=== PATIENT | female | born 1930 | race Caucasian/White ===

== ENCOUNTER 2016-10-29 07:48 | Inpatient (IN) | payer MEDICARE, OTHER ==
[~2016-10-29] VITALS: Ht 162.6 cm; Wt 73.7 kg
[2016-10-29] MEDS ORDERED: ALBUTEROL 0.083% NEB SOLUTION 2.5 MG/3 ML VIAL INH ONE (08:05)
--- NOTE | 2016-10-29 08:08 | NUR ---
PT UP TO ATTEMPT TO URINATE SHE STATES "I GOTTA GO PEE REAL BAD". PT ONLY GAVE A VERY MINUTE AMOUNT. STATES WHEN SHE COUGHS SHE FEELS THE URGE TO URINATE. CL
[2016-10-29 08:26] LABS: BASOPHILS % (AUTO) 0 % (0-2); EOSINOPHILS # (AUTO) 0.2 10^3uL; EOSINOPHILS % (AUTO) 1 % (0-4); LYMPHOCYTES # (AUTO) 1.6 X10^3; MEAN CORPUSCULAR HEMOGLOBIN 29.6 PG (26.0-34.0); MEAN CORPUSCULAR HGB CONC 32.8 g/dL (31.0-37.0); MEAN CORPUSCULAR VOLUME 90 FL (80-100); MONOCYTES # (AUTO) 1.3 X10^3; MONOCYTES % (AUTO) 10 % (3-11); NEUTROPHILS # (AUTO) 10.1 X10^3; NEUTROPHILS % (AUTO) 77 % (51-67); PLATELET COUNT 283 10^3uL (150-450); WHITE BLOOD COUNT 13.15 10^3uL (4.0-11.0)
[2016-10-29 08:42] LABS: ALBUMIN 3.9 g/dL (3.4-5.0); ANION GAP 13.2 MEQ/L (3-15); CALCULATED IONIZED CALCIUM 3.8 mg/dL (3.8-4.6)
[2016-10-29 08:43] LABS: INFLUENZA VIRUS TYPE A ANTIBOD Negative (NEGATIVE); INFLUENZA VIRUS TYPE B ANTIBOD Negative (NEGATIVE)
--- NOTE | 2016-10-29 08:54 | NUR ---
DR VAZQUEZ TEXTS DR BEACH RE PT. CL
--- NOTE | 2016-10-29 09:00 | NUR ---
PT UNABLE TO URINATE YET. CL
[2016-10-29] MEDS ORDERED: NS IV 500 ML 500 ML IV SCH (09:30)
[2016-10-29] MEDS ORDERED: SODIUM CHLORIDE FLUSH 3 ML SYR IV ONE (09:30)
[2016-10-29] MEDS ORDERED: methylPREDNISolone 125 MG (Solu-MEDROL) VIAL IV ONE (09:30)
--- NOTE | 2016-10-29 10:13 | NUR ---
PT CONT UNABLE TO VOID AT THIS TIME & WOULD LIKE TO STAY IN HER [facility] FROM HOME. CL
--- NOTE | 2016-10-29 10:25 | NUR ---
TEXT TO M/S PHONE 2 FOR REPORT. CL
--- NOTE | 2016-10-29 10:45 | NUR ---
Pt admitted to Rm 309 via cart accompanied by Ann, MARLENE and family. Skin warm, dry, intact. Resprs nonlabored, even on 2L NC. 22g to R wrist intact. See admission database for assessment info.
[2016-10-29 11:04] VITALS: BP 153/78
[2016-10-29] MEDS ORDERED: MAG HYDROX/AL HYDROX/SIMETH 200-200-20/5 ML (MAG-AL PLUS) 30 ML UDC PO PRN (11:20)
[2016-10-29] MEDS ORDERED: POLYETHYLENE GLYCOL 17 GM (MIRALAX) PACKET PO PRN (11:20)
[2016-10-29] MEDS ORDERED: MAGNESIUM HYDROXIDE 80MG/ML (MILK OF MAGNESIA) 30 ML UDC PO PRN (11:20)
[2016-10-29] MEDS ORDERED: ACETAMINOPHEN 325 MG TAB (TYLENOL) PO PRN (11:20)
[2016-10-29] MEDS ORDERED: ONDANSETRON 4 MG (ZOFRAN) ORAL DISSOLVE TAB PO PRN (11:20)
[2016-10-29] MEDS ORDERED: CALCIUM CARBONATE CHEWABLE 300 MG (TUMS) TABLET PO PRN (11:20)
[2016-10-29] MEDS ORDERED: ALBUTEROL 0.083% NEB SOLUTION 2.5 MG/3 ML VIAL INH PRN (11:20)
[2016-10-29] MEDS ORDERED: PROMETHAZINE HCL INJ 12.5 MG in SODIUM CHLORIDE 25 ML IV PRN (11:20)
[2016-10-29] MEDS ORDERED: DOCUSATE SODIUM 100 MG (COLACE) CAP PO PRN (11:20)
[2016-10-29 11:29] VITALS: BP 153/78
[2016-10-29] MEDS ORDERED: ALBUTEROL/IPRATROPIUM 3MG-0.5MG/3ML (DUONEB) NEB VIAL INH SCH (12:00)
[2016-10-29] MEDS ORDERED: SODIUM CHLORIDE 100 ML ONE (12:07)
[2016-10-29] MEDS ORDERED: NS 100 ML (IVPB) BAG INJ PRN (12:10)
[2016-10-29] MEDS ORDERED: SODIUM CHLORIDE 100 ML INJ PRN (12:10)
[2016-10-29] MEDS: LEVOFLOXACIN 750 MG/150 ML IV 150 ML IV SCH (12:29)
--- NOTE | 2016-10-29 13:16 | NUR ---
MED REC COMPLETED-current med list obtained from Ext Med History application, prescription bottles, and patient interview.
--- NOTE | 2016-10-29 15:03 | NUR ---
MULTIDISCIPLINARY MTG/DR. RODRIGUEZ: Pt. admitted today with a respiratory illness she has had for more than two weeks. Pt. had been on azithromycin. Will treat Pt. for bronchopneumonia and treat with levofloxacin. Pt. reports she hasn't had an appetite the last few weeks and she has lost weight. Pt. daughters prepare meals for Pt. and her . Pt. will receive duonebs TID and oxygen protocol is ordered. Pt. has been on 2L oxygen since arriving on the floor. PT ordered to work with Pt. No discharge needs identified at this time.
[2016-10-29 15:38] LABS: BILIRUBIN,URINE Negative (Negative); CLARITY,URINE Clear; COLOR,URINE Yellow; GLUCOSE, URINE (UA) Negative (Negative); LEUKOCYTE ESTERASE ,URINE Negative (Negative)
[2016-10-29 15:52] VITALS: BP 137/83
[2016-10-29 16:03] LABS: URINE CENTRIFUGED VOLUME 12 mL
[2016-10-29 16:04] LABS: RBC,URINE 0-2 /HPF
--- NOTE | 2016-10-29 17:44 | NUR ---
Pt denies needs this shift. Family here off and on today. SL intact. Pt requests cough drops, [place] notified. Skin WDI, resprs nonlabored, even on RA. Denies needs.
[2016-10-29] MEDS ORDERED: DILTIAZEM 60 MG (CARDIZEM) TAB PO SCH (18:10)
[2016-10-29] MEDS: HALL'S COUGH DROPS MM PRN ×2 (18:42→21:55)
--- NOTE | 2016-10-29 19:40 | NUR ---
Pt. on room air; SATS obtained; 93%.
[2016-10-29] MEDS: DEXTROMETHORPHAN 15 MG/10 ML UDC PO PRN ×2 (19:43→23:39)
--- NOTE | 2016-10-29 19:43 | NUR ---
Robitussin cough syrup 15 mg given for frequent, harsh cough. SCD's applied. Pt. alert & orientated; watching tv. Call light and H2O within reach.
[2016-10-29] MEDS: ASPIRIN 81 MG CHEW (CHILDREN'S ASA) PO SCH (20:16)
[2016-10-29] MEDS: guaiFENesin ER 600 MG (MUCINEX) TAB PO SCH (20:16)
--- NOTE | 2016-10-29 20:19 | NUR ---
Pt. reports 'the red medicine you gave me is sure helping!' Pt. requests SCD's to be removed; 'I doze off and then they jolt me awake'.
[2016-10-29] MEDS: ALBUTEROL/IPRATROPIUM 3MG-0.5MG/3ML (DUONEB) NEB VIAL INH SCH (20:22)
--- NOTE | 2016-10-29 20:25 | NUR ---
Pt found lying in bed on RA, SPO2 95%, HR 90, RR 18 with a harsh cough. BS essentially clearbefore and after Duoneb via SVN/MASK. Estefanía instructed.
[2016-10-29] MEDS: MONTELUKAST 10 MG (SINGULAIR) TAB PO SCH (21:53)
[2016-10-29] MEDS: HYDROcodone/APAP 5 MG/325 MG (NORCO) TAB PO PRN (21:54)
--- NOTE | 2016-10-29 21:55 | NUR ---
[place] 5 (0.5 mg ) PO given for slight aches with coughing/sleep aid. Pt. utilizes cough drops; preparing for sleep. H2O and call light within reach.
--- NOTE | 2016-10-29 23:39 | NUR ---
Robitussin syrup given for cough.
[2016-10-30 00:10] VITALS: BP 130/78
[2016-10-30 00:42] VITALS: BP 127/68
[2016-10-30] MEDS: DEXTROMETHORPHAN 15 MG/10 ML UDC PO PRN ×4 (03:14→20:26)
--- NOTE | 2016-10-30 03:14 | NUR ---
Pt. sleeping in intervals; Robitussin given at this time. Pt. calls for assist PRN; pleasant & cooperative.
--- NOTE | 2016-10-30 06:11 | NUR ---
Pt. slept in short intervals last night; Robitussin helped cough although still present & productive. Pt. denies discomfort currently; cooperative with calling for stand by assist when ambulating to and fro bathroom with walker. Pt.'s SATS this shift were between 90-96% on room air. Pt. is pleasant and cooperative; call light within reach. H2O replenished; warm wash cloth provided for face and hands.
[2016-10-30 06:14] LABS: ALBUMIN 3.5 g/dL (3.4-5.0); ANION GAP 14.3 MEQ/L (3-15); PHOSPHORUS 3.3 mg/dL (2.4-4.9)
[2016-10-30 06:26] LABS: BASOPHILS % (AUTO) 0 % (0-2); EOSINOPHILS % (AUTO) 0 % (0-4); LYMPHOCYTES # (AUTO) 2.3 X10^3; MEAN CORPUSCULAR HGB CONC 33.1 g/dL (31.0-37.0); MEAN CORPUSCULAR VOLUME 91 FL (80-100); MEAN PLATELET VOLUME 10.3 FL (6.0-9.5); MONOCYTES # (AUTO) 1.3 X10^3; MONOCYTES % (AUTO) 10 % (3-11); NEUTROPHILS # (AUTO) 9.5 X10^3; NEUTROPHILS % (AUTO) 72 % (51-67); PLATELET COUNT 267 10^3uL (150-450); WHITE BLOOD COUNT 13.26 10^3uL (4.0-11.0)
[2016-10-30 07:25] VITALS: BP 140/80
[2016-10-30] MEDS: guaiFENesin ER 600 MG (MUCINEX) TAB PO SCH ×2 (08:11→20:26)
[2016-10-30] MEDS: OMEGA-3 ACID ETHYL ESTERS 1 GM (LOVAZA) CAPSULE PO SCH (08:11)
[2016-10-30] MEDS: PRAVASTATIN 20 MG (PRAVACHOL) TABLET PO SCH (08:11)
[2016-10-30] MEDS: ACIDOPHILUS/LACTOBACILLUS SPOROGENES 1 TABLET PO SCH (08:11)
[2016-10-30] MEDS: CYANOCOBALAMIN 1000 MCG (VITAMIN B-12) TABLET PO SCH (08:12)
[2016-10-30] MEDS: ATENOLOL 25 MG (TENORMIN) TAB PO SCH (08:12)
[2016-10-30] MEDS: ASCORBIC ACID 500 MG (VITAMIN C) TABLET PO SCH (08:12)
--- NOTE | 2016-10-30 08:12 | NUR ---
NUTRITION ASSESSMENT Level 1 Patient: Sarah Travis Age/Sex: 86/F Date Screened: 10-30-16 Weight: 160.1#/72.8 kg Height: 64 inches Primary Diagnosis: bronchopneumonia Diet Order: regular Relevant labs: CRP 13.80, glucose 108 Food allergies: N Nutrition Assessment Criteria Age over 80: 4 points Body Mass Index (BMI) under 19: N Admission Screening Indicates Risk? 6 points Moderate/High Risk Diagnosis: N TPN or PPN: N NPO or clear liquid diet: N Serum Glucose <70 or >180: N Hgb A1c >6.7: N/A Total: 10 points Risk Screen: __ Patient at low nutritional risk based on available data; reevaluate in 5-7 days __ Patient at moderate nutritional risk based on available data; reevaluate in 3-5 days _X_ Patient at high nutritional risk; complete Nutrition Assessment within 48 hours of admission.
[2016-10-30] MEDS: ENOXAPARIN 40 MG/0.4 ML (LOVENOX) SYR SC SCH (08:14)
[2016-10-30] MEDS ORDERED: DILTIAZEM CD 180 MG (CARDIZEM CD) CAP PO SCH (09:00)
--- NOTE | 2016-10-30 09:13 | NUR ---
NUTRITION ASSESSMENT Level II Patient: Sarah Travis Age/Sex: 86/F Date Assessed: 10-30-16 ASSESSMENT Pertinent History: Patient admitted with bronchopneumonia and screened at high nutritional risk secondary to unintentional weight loss in elderly female. PMHx includes chronic pain, GERD and HTN. She lives at home with her , but daughter helps with meals. Pt. reports being very tired over the past week with poor appetite/intake and 8# weight loss. Meds/Nutrition: omega 3 FAs, vitamin B12, vitamin C, lactobacillus acidophilus Weight: 160.1#/72.8 kg Height: 64 inches Body Mass Index (BMI): 27.5 [place] Body Weight : 120#/54.5 kg % IBW: 133% GASTROINTESTINAL Appetite: poor but improving; ate 50% breakfast compared with 5-10% yesterday Diet Order: regular Unintentional loss of >10 lbs. in 3 months: N Difficult to chew/swallow: N Diabetes: N Relevant Labs: CRP 13.80, glucose 108 Calculations for Nutritional Assessment Estimated calorie needs: 22-25 kcals/kg = 1,580-1,800 kcals/day Estimated protein needs: 1.0-1.2 g/kg = 72-86 g./day DIAGNOSIS 1. Nutrition Diagnosis: (acute) inadequate intake related to acute illness as evidenced by poor appetite/ intake with unintentional weight loss 8# (4.7%) in the past week or two. NUTRITIONAL INTERVENTION Goal: Patient will receive adequate nutrition to meet her needs. Plan: Will provide regular diet as ordered and monitor intake for adequacy. Expect appetite to continue to improve with resolution of symptoms. Smaller portions may be helpful until appetite returns; protein shake such as Ensure may also be helpful if pt. is not hungry enough to eat solid foods. Expect weight to return to UBW as appetite improves. MONITORING & EVALUATION _X_ Monitor patients menu selections _X_ Monitor patients food intake per nursing notes __ Monitor NPO/clear liquid days __ Monitor lab values __ Monitor I&O __ Other
[2016-10-30] MEDS: ALBUTEROL/IPRATROPIUM 3MG-0.5MG/3ML (DUONEB) NEB VIAL INH SCH ×3 (09:26→23:04)
[2016-10-30] MEDS: HYDROcodone/APAP 5 MG/325 MG (NORCO) TAB PO PRN (11:46)
[2016-10-30] MEDS: LEVOFLOXACIN 750 MG/150 ML IV 150 ML IV SCH (11:47)
[2016-10-30] MEDS: SODIUM CHLORIDE FLUSH 10 ML SYR IV PRN (11:48)
[2016-10-30 16:13] VITALS: BP 128/80
--- NOTE | 2016-10-30 17:17 | NUR ---
Pt. is tired from frequent coughing, now getting cough syrup and norco which seems to be helping a little with coughing. BS are ess. clear at this time yet still has rumbling upper airway cough, although not as frequent as this am. Room air, 95%.
--- NOTE | 2016-10-30 19:15 | NUR ---
Pt rests in bed and on edge of bed this shift, sleeping on and off. Skin warm, dry, intact. Resprs nonlabored, even on RA. Pt continues to c/o "annoying cough". PRN Robitussin given when available every 4 hours. Pt states this helps much more than the cough drops. Pt is up with SBA and walker to RR. SL intact. Pt requests to take IV out, informed pt we need to keep it in for IV abx. Pt denies needs at this time. Report given to Meghna Becerra RN; care relinquished.
[2016-10-30] MEDS: MONTELUKAST 10 MG (SINGULAIR) TAB PO SCH (20:26)
[2016-10-30] MEDS: ASPIRIN 81 MG CHEW (CHILDREN'S ASA) PO SCH (20:26)
--- NOTE | 2016-10-30 20:41 | NUR ---
Tx held at this time, Pt sleeping.
--- NOTE | 2016-10-30 23:07 | NUR ---
Pt found sitting on the side of her bed on RA, SPO2 92%, HR 89, RR 16 with a persistent cough, BS clear in all lung thompson pre and post Tx with Duoneb via SVN/MASK.
[2016-10-30] MEDS ORDERED: LIDOCAINE 4% TOPICAL 4.5 ML SYR MM ONE (23:55)
[2016-10-30] MEDS ORDERED: SODIUM CHLORIDE 0.9% NEB SOLN 3 ML VIAL ONE (23:57)
[2016-10-31] VITALS: BP 130/78
--- NOTE | 2016-10-31 00:07 | NUR ---
1.5 cc 4% lidocaine diluted with 1.5 cc NS nebulized for persistent cough, tolerated well, Pt had positive reaction to Tx, Cough subsided, along with pain in trachea.
[2016-10-31] MEDS: HYDROcodone/APAP 5 MG/325 MG (NORCO) TAB PO PRN (00:47)
[2016-10-31 05:57] LABS: MEAN CORPUSCULAR HEMOGLOBIN 30.2 PG (26.0-34.0); MEAN CORPUSCULAR HGB CONC 33.2 g/dL (31.0-37.0); MEAN CORPUSCULAR VOLUME 91 FL (80-100); PLATELET COUNT 243 10^3uL (150-450); WHITE BLOOD COUNT 11.66 10^3uL (4.0-11.0)
--- NOTE | 2016-10-31 05:59 | NUR ---
Lying in bed awake, asked if needed cough syrup, refuses at this time. Denies any needs or complaints.
[2016-10-31 06:30] LABS: BAND NEUTROPHILS % 0 % (0-6); EOSINOPHILS % 1 % (0-4); LYMPHOCYTES # 2.2 #; MONOCYTES % 9 % (3-11); RBC MORPH NORMAL (NORMAL); SEGMENTED NEUTROPHILS % 71 % (51-67); TOTAL CELLS COUNTED 100
--- NOTE | 2016-10-31 07:20 | NUR ---
Patient sitting up at edge of bed upon shift assessment. Alert and oriented X3. Denies pain, SOA, nausea, or other distress. Reports getting rest throughout night and denies need for PRN Robitussin or cough drops. Respirations even and non-labored on roomair. HR RRR. Rales noted in bilateral lung bases. Updated on plan of care for shift. Call light in reach.
[2016-10-31 08:07] VITALS: BP 134/85
[2016-10-31] MEDS: CYANOCOBALAMIN 1000 MCG (VITAMIN B-12) TABLET PO SCH (08:29)
[2016-10-31] MEDS: OMEGA-3 ACID ETHYL ESTERS 1 GM (LOVAZA) CAPSULE PO SCH (08:29)
[2016-10-31] MEDS: ACIDOPHILUS/LACTOBACILLUS SPOROGENES 1 TABLET PO SCH (08:29)
[2016-10-31] MEDS: ASCORBIC ACID 500 MG (VITAMIN C) TABLET PO SCH (08:29)
[2016-10-31] MEDS: PRAVASTATIN 20 MG (PRAVACHOL) TABLET PO SCH (08:30)
[2016-10-31] MEDS: guaiFENesin ER 600 MG (MUCINEX) TAB PO SCH ×2 (08:31→20:36)
[2016-10-31] MEDS: ENOXAPARIN 40 MG/0.4 ML (LOVENOX) SYR SC SCH (08:31)
[2016-10-31] MEDS: ALBUTEROL/IPRATROPIUM 3MG-0.5MG/3ML (DUONEB) NEB VIAL INH SCH ×3 (09:12→19:50)
[2016-10-31] MEDS: ATENOLOL 25 MG (TENORMIN) TAB PO SCH (09:27)
[2016-10-31] MEDS: DEXTROMETHORPHAN 15 MG/10 ML UDC PO PRN ×4 (10:38→23:08)
[2016-10-31] MEDS: SODIUM CHLORIDE FLUSH 10 ML SYR IV PRN (12:09)
[2016-10-31] MEDS: LEVOFLOXACIN 750 MG/150 ML IV 150 ML IV SCH (12:09)
[2016-10-31 15:13] VITALS: BP 122/77
--- NOTE | 2016-10-31 17:00 | NUR ---
Pt. tired, no c/o SOA, room air 93%. Pt. still has harsh NPC.
--- NOTE | 2016-10-31 18:11 | NUR ---
Patient remains on roomair throughout day shift. Denies pain but reports cough persists and impairs rest. Appetite remains poor but patient does consume 237 ml ensure with each meal. Ambulates with staff, gate improves throughout day shift. Does attempt to rest in short intervals. Daughter and at bedside. Call light in reach.
--- NOTE | 2016-10-31 19:52 | NUR ---
Pt found on RA, SPO2 94%, HR 89, RR 16 and non labored. Cough is subsided at this time and Pt is comfortable. Duoneb given via SVN/MASK tolerated well and all lung thompson are clear before and after Tx.
[2016-10-31] MEDS: MONTELUKAST 10 MG (SINGULAIR) TAB PO SCH (20:36)
[2016-10-31] MEDS: ASPIRIN 81 MG CHEW (CHILDREN'S ASA) PO SCH (20:36)
[2016-10-31] MEDS: IBUPROFEN 600 MG (MOTRIN) TAB PO PRN (20:40)
[2016-11-01 00:32] VITALS: BP 122/77
[2016-11-01] MEDS: DEXTROMETHORPHAN 15 MG/10 ML UDC PO PRN ×5 (03:05→20:03)
[2016-11-01 06:04] LABS: BASOPHILS % (AUTO) 1 % (0-2); EOSINOPHILS # (AUTO) 0.2 10^3uL; EOSINOPHILS % (AUTO) 2 % (0-4); LYMPHOCYTES # (AUTO) 2.4 X10^3; MEAN CORPUSCULAR HEMOGLOBIN 29.9 PG (26.0-34.0); MEAN CORPUSCULAR VOLUME 91 FL (80-100); MONOCYTES # (AUTO) 0.7 X10^3; MONOCYTES % (AUTO) 8 % (3-11); NEUTROPHILS # (AUTO) 5.4 X10^3; NEUTROPHILS % (AUTO) 61 % (51-67); PLATELET COUNT 259 10^3uL (150-450); WHITE BLOOD COUNT 8.79 10^3uL (4.0-11.0)
--- NOTE | 2016-11-01 06:40 | NUR ---
Patient rests in bed throughout night without needs. Has coughing that is semi-relieved with robitussin. No needs at this time.
[2016-11-01 07:28] VITALS: BP 121/86
--- NOTE | 2016-11-01 07:45 | NUR ---
Patient sitting up at edge of bed upon shift assessment. Alert and oriented X3. Appears drowsy and lethargic. Denies pain but reports "feeling bad". Unable to describe. Denies SOA. Hacking cough persists despite PRN Robitussin and impaired sleep last night. Rales noted in right lung base. All other lung thompson clear. HR RRR. Recliner provided to increase comfort. Updated on plan of care for shift. Will continue to monitor.
[2016-11-01] MEDS: OMEGA-3 ACID ETHYL ESTERS 1 GM (LOVAZA) CAPSULE PO SCH (08:28)
[2016-11-01] MEDS: ACIDOPHILUS/LACTOBACILLUS SPOROGENES 1 TABLET PO SCH (08:28)
[2016-11-01] MEDS: guaiFENesin ER 600 MG (MUCINEX) TAB PO SCH ×2 (08:29→20:03)
[2016-11-01] MEDS: ASCORBIC ACID 500 MG (VITAMIN C) TABLET PO SCH (08:29)
[2016-11-01] MEDS: PRAVASTATIN 20 MG (PRAVACHOL) TABLET PO SCH (08:29)
[2016-11-01] MEDS: ENOXAPARIN 40 MG/0.4 ML (LOVENOX) SYR SC SCH (08:29)
[2016-11-01] MEDS: ATENOLOL 25 MG (TENORMIN) TAB PO SCH (08:29)
[2016-11-01] MEDS: CYANOCOBALAMIN 1000 MCG (VITAMIN B-12) TABLET PO SCH (08:29)
[2016-11-01] MEDS: ALBUTEROL/IPRATROPIUM 3MG-0.5MG/3ML (DUONEB) NEB VIAL INH SCH ×3 (08:57→20:36)
[2016-11-01] MEDS: IBUPROFEN 600 MG (MOTRIN) TAB PO PRN ×2 (09:07→15:40)
--- NOTE | 2016-11-01 10:35 | NUR ---
Dr. Carrera in room to see patient. Patient reports new onset chest palpitations after continuos coughing spell. New orders received.
--- NOTE | 2016-11-01 10:36 | NUR ---
RT here for EKG.
[2016-11-01 11:01] LABS: MAGNESIUM* 2.1 mg/dL (1.6-2.3)
[2016-11-01] MEDS: SODIUM CHLORIDE FLUSH 10 ML SYR IV PRN (11:32)
[2016-11-01] MEDS: LEVOFLOXACIN 750 MG/150 ML IV 150 ML IV SCH (11:32)
[2016-11-01 11:38] VITALS: BP 126/86
--- NOTE | 2016-11-01 13:04 | NUR ---
22g IV in right wrist infiltrated. Small red area noted at insertion site. Discontinued with catheter intact. 22g IV initiated into left forearm on first attempt by this nurse. Patient tolerates well.
[2016-11-01 15:23] VITALS: BP 118/85
--- NOTE | 2016-11-01 16:18 | NUR ---
Pt. had difficult morning with SOA and nausea. Still has harsh NPC, not as frequent. Pt. states feeling better this PM. Room air 93%.
--- NOTE | 2016-11-01 18:04 | NUR ---
Patient sitting at edge of bed. Denies chest palpitations or pain. Telemetry reflecting NSR. PRN Robitussin provided Q4 and PRN Motrin provided Q6 throughout day shift with good effect. Ambulating independently around room. Call light in reach.
[2016-11-01 19:33] VITALS: BP 125/84
[2016-11-01] MEDS: MONTELUKAST 10 MG (SINGULAIR) TAB PO SCH (20:03)
[2016-11-01] MEDS: ASPIRIN 81 MG CHEW (CHILDREN'S ASA) PO SCH (20:03)
--- NOTE | 2016-11-01 20:38 | NUR ---
Pt is laying in bed, tolerated tx well, does not seem to be in any distress, on RA SPO2 92%
[2016-11-01 23:42] VITALS: BP 123/74
[2016-11-02] MEDS: IBUPROFEN 600 MG (MOTRIN) TAB PO PRN (00:08)
[2016-11-02] MEDS: DEXTROMETHORPHAN 15 MG/10 ML UDC PO PRN (00:08)
[2016-11-02 04:04] VITALS: BP 127/81
--- NOTE | 2016-11-02 06:18 | NUR ---
Patient continues to have some coughing fits throughout night. Resting in bed at this time without needs or pain. Takes dextromethorphan and ibuprofen when needed. No needs at this time.
[2016-11-02 07:30] VITALS: BP 121/80
[2016-11-02] MEDS: ALBUTEROL/IPRATROPIUM 3MG-0.5MG/3ML (DUONEB) NEB VIAL INH SCH (08:21)
[2016-11-02] MEDS: ACIDOPHILUS/LACTOBACILLUS SPOROGENES 1 TABLET PO SCH (08:28)
[2016-11-02] MEDS: OMEGA-3 ACID ETHYL ESTERS 1 GM (LOVAZA) CAPSULE PO SCH (08:28)
[2016-11-02] MEDS: ATENOLOL 25 MG (TENORMIN) TAB PO SCH (08:28)
[2016-11-02] MEDS: ASCORBIC ACID 500 MG (VITAMIN C) TABLET PO SCH (08:28)
[2016-11-02] MEDS: CYANOCOBALAMIN 1000 MCG (VITAMIN B-12) TABLET PO SCH (08:28)
[2016-11-02] MEDS: PRAVASTATIN 20 MG (PRAVACHOL) TABLET PO SCH (08:28)
[2016-11-02] MEDS: guaiFENesin ER 600 MG (MUCINEX) TAB PO SCH (08:28)
[2016-11-02] MEDS: ENOXAPARIN 40 MG/0.4 ML (LOVENOX) SYR SC SCH (08:29)
[2016-11-02] MEDS ORDERED: LEVOFLOXACIN 750 MG TAB (LEVAQUIN) PO SCH ×2 (10:55→13:40)
--- NOTE | 2016-11-02 11:44 | NUR ---
MULTIDISCIPLINARY MTG/DR. LARA: Pt. has been accepted to [facility] for skilled care. Pt. will receive one last dose of antibiotic before discharge. SW will organize transportation for PT. SW has informed Pt. and family of discharge plans.
[2016-11-02 12:05] VITALS: BP 126/82
--- NOTE | 2016-11-02 14:33 | NUR ---
Report called to MARLENE Moreno at [facility] [phone] (ext [phone]). SL removed with catheter tip intact. Pressure applied. Skin warm, dry, intact. Resprs nonlabored, even on RA. Family at bedside. Pt up ad jes in room with walker. Pt dismissed at this time via w/c [facility] Pt appreciative of cares.
== END 2016-11-02 14:33 | DRG 193 ==
LOC: EDUNIT# 07:48 → ED 07:50 → MED/SURG 10:07
PROVIDERS: ADMIT Internal Medicine; ATTEND Internal Medicine
DX: J18.9 Pneumonia, unspecified organism (principal); J96.01 Acute respiratory failure with hypoxia; E86.0 Dehydration; G47.01 Insomnia due to medical condition; R00.2 Palpitations; I10 Essential (primary) hypertension; K21.9 Gastro-esophageal reflux disease without esophagitis; G89.29 Other chronic pain; R63.4 Abnormal weight loss; E78.2 Mixed hyperlipidemia
CPT/HCPCS: 36415; 71020; 80053; 80069; 81003; 81015; 83735; 83880; 84484; 85007; 85025; 85027; 86140; 87040; 87070; 87088; 87205; 87486; 87502; 87581; 87633; 87798; 93005; 94640; 94669; 94760; 96374; 99284; 99285

== ENCOUNTER → 2016-10-29 | Outpatient (CLI) | payer MEDICARE, OTHER | LOC: EMS 07:50 | PROVIDERS: ATTEND Family Medicine | DX: R06.09 Other forms of dyspnea (principal); R05 Cough ==